=== PATIENT | female | born 1950 | race African-American/Black ===

== ENCOUNTER 2017-02-16 21:57 | Emergency (ER) | payer OTHER ==
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
--- NOTE | 2017-02-16 22:39 | CPEKG ---
Heart Rate: 58 RR Interval: 1034 P-R Interval: 140 QRSD Interval: 82 QT Interval: 456 QTC Interval: 448 P [place]: 1 QRS [place]: 41 T Wave [place]: 32 EKG Severity - NORMAL ECG - EKG Impression: SINUS RHYTHM Electronically Signed By: Reggie Andrea 16-Feb-2017 23:18:31
[2017-02-16] MEDS ORDERED: fentaNYL 100 MCG/2 ML INJ IVP ONE (22:53)
[2017-02-16] MEDS ORDERED: NS 1,000 ML IV ONE (23:09)
[2017-02-16 23:16] LABS: % IMMATURE GRANULYOCYTES 0.2 % (0.0-1.1); ABSOLUTE IMMATURE GRANULOCYTES 0.02 10^3/uL (0.00-0.10); ADD DIFF? NO; ADD MORPH? NO; ADD SCAN? NO; ATYPICAL LYMPHOCYTE FLAG 0 (0-99); FRAGMENT RBC FLAG 40 (0-99); HEMATOCRIT 33.8 % (38.0-47.0); HEMOGLOBIN 10.7 g/dL (12.6-16.3); LEFT SHIFT FLG 0 (0-99); LIPEMIA HEMOLYSIS FLAG 80 (0-99); MEAN CELL HEMOGLOBIN 24.3 pg (27.9-34.1); MEAN CELL HEMOGLOBIN CONCENTR. 31.7 g/dL (32.4-36.7); MEAN CELL VOLUME 76.6 fL (81.5-99.8); PLATELET CLUMPS FLAG 30 (0-99); PLATELET COUNT 245 10^3/uL (150-400); RED BLOOD CELL COUNT 4.41 10^6/uL (4.18-5.33); RED CELL DISTRIBUTION WIDTH 19.1 % (11.5-15.2)
[2017-02-16 23:23] LABS: INR 1.07 (0.83-1.16); PROTIME(PATIENT) 13.8 SEC (12.0-15.0)
[2017-02-16 23:28] LABS: ANION GAP 10 mEq/L (8-16); CALCIUM 10.2 mg/dL (8.5-10.4); CARBON DIOXIDE 26 mEq/l (22-31); CHLORIDE 103 mEq/L (97-110); CREATININE 0.7 mg/dL (0.6-1.0); GLOMERULAR FILTRATION RATE > 60; GLUCOSE 94 mg/dL (70-100); POTASSIUM 3.9 mEq/L (3.5-5.2); SODIUM 139 mEq/L (134-144)
[2017-02-16 23:39] LABS: TROPONIN I < 0.012 ng/mL (0.000-0.034)
[2017-02-16] MEDS ORDERED: IOPAMIDOL (ISOVUE-300) 100 ML BTL ONE (23:50)
[2017-02-17 00:26] LABS: COLOR PALE YELLOW; LEUKOCYTE ESTERASE,URINE NEGATIVE (NEGATIVE); NITRITE,URINE NEGATIVE (NEGATIVE)
[2017-02-17 00:33] LABS: RBC,URINE 15-25 /hpf (0-3)
[2017-02-17] MEDS ORDERED: IPRATROPIUM/ALBUTEROL 3 ML DEYVIAL IH ONE (00:45)
[2017-02-17 00:46] VITALS: BP 155/61; PULSE 66; RESP 11; TEMP 98.1; O2SAT 96
[2017-02-17] MEDS ORDERED: ALBUTEROL INH PREPACK MDI TAKEHOME ONE (01:15)
== END 2017-02-17 01:23 | disposition home or self-care (01) ==
DX: R06.00 Dyspnea, unspecified (principal); R09.89 Other specified symptoms and signs involving the circulatory and respiratory systems; R07.9 Chest pain, unspecified; I10 Essential (primary) hypertension; E86.9 Volume depletion, unspecified; Z79.82 Long term (current) use of aspirin; Z87.891 Personal history of nicotine dependence
CPT/HCPCS: 71010; 71275; 93005; 96361; 96374; 99285; J3010; Q9967

== ENCOUNTER → 2017-02-27 | Outpatient (CLI) | payer OTHER | LOC: FIMAGING 09:28 | PROVIDERS: ATTEND Internal Medicine | DX: R22.42 Localized swelling, mass and lump, left lower limb (principal); I50.9 Heart failure, unspecified ==

== ENCOUNTER 2017-03-07 00:25 | Observation (INO) | payer OTHER ==
--- NOTE | 2017-03-07 00:37 | EDPHY ---
H & P Stated Complaint: CP & HTN HPI/ROS: HPI CHIEF COMPLAINT: Left-sided chest pressure dull ache, hypertension HISTORY OF PRESENT ILLNESS: This patient very pleasant 66-year-old female she presents emergency room left-sided chest discomfort since 06/05 today. She states has been rather constant. It is described as a dull ache pressure sensation left side of her chest goes upper left neck and down her left arm. She denies any nausea vomiting or diaphoresis with this. She does endorse some shortness of breath with this. She is currently being evaluated for COPD. She has never had a stroke or heart attack. Does not smoke but had a remote history of smoking. Of note this patient just arrived to [facility] 3 weeks ago from [place]. She left [place] as [place] family lives here [place] Past Medical History: Hypertension Past Surgical History: No recent surgery Social History: Remote history of tobacco. Denies illicit drugs or alcohol. Relocated from [place] Family History: Noncontributory ROS REVIEW OF SYSTEMS: A comprehensive 10 point review of systems is otherwise negative aside from elements mentioned in the history of present illness. Exam Constitutional appears well nontoxic, triage nursing summary reviewed, vital signs reviewed, awake/alert. Eyes normal conjunctivae and sclera, EOMI, PERRLA. HENT normal inspection, atraumatic, moist mucus membranes, no epistaxis, neck supple/ no meningismus, no raccoon eyes. Respiratory clear to auscultation bilaterally, normal breath sounds, no respiratory distress, no wheezing. Cardiovascular rate normal, regular rhythm, no murmur, no edema, distal pulses normal. Gastrointestinal soft, non-tender, no rebound, no guarding, normal bowel sounds, no distension, no pulsatile mass. Genitourinary no CVA tenderness. Musculoskeletal no midline vertebral tenderness, full range of motion, no calf swelling, no tenderness of extremities, no meningismus, good pulses, neurovascularly intact. Skin pink, warm, & dry, no rash, skin atraumatic. Neurologic awake, alert and oriented x 3, AAOx3, moves all 4 extremities equally, motor intact, sensory intact, CN II-XII intact, normal cerebellar, normal vision, normal speech. Psychiatric normal mood/affect. Heme/Lymph/Immune no lymphadenopathy. Differential diagnosis includes but is not limited to: ACS, atypical chest pain , pneumothorax, pneumonia, pulmonary embolism, aortic dissection, congestive heart failure, tumor, musculoskeletal pain, esophageal pain, GERD, peptic ulcer disease, pancreatitis Medical Decision Making: Plan for this patient IV establishment with IV fluid bolus, nitroglycerin to see if this improves her chest discomfort and hypertension, full-dose aspirin, check EKG to rule out acute coronary syndrome, troponin. Blood work. Re-evaluate. Re-evaluation: ED x-ray chest one view: Negative for acute cardiopulmonary disease. EKG interpretation by me on record in [employer] system. Impression time of EKG 0046: This is sinus rhythm rate of 55. LVH present. I do not appreciate acute ischemic change. Patient's chest pain has greatly improved with 2 doses of nitroglycerin. Blood pressure improved as well. 0129: Patient D-dimer is noted to be positive. Will proceed with CT angiogram of the chest in the setting of rule out pulmonary embolism. In the setting of chest pain shortness of breath. 0133: Additionally will keep this patient in the hospital for further evaluation of her hypertension and chest pressure. Relieved by nitroglycerin. I do not have any indication here in the emergency room that she is having acute coronary syndrome. Plan for hospital admission. Hospitalist has accepted Dr. García. CT scan angiogram of the chest with IV contrast shows no pulmonary embolism. Unremarkable CT angiogram. Source: Patient - Personal History Current Tetanus/Diphtheria Vaccine: Unsure Current Tetanus Diphtheria and Acellular Pertussis (TDAP): Unsure - Medical/Surgical History Hx Asthma: No Hx Chronic Respiratory Disease: No Hx Diabetes: No Hx Cardiac Disease: No Hx Renal Disease: No Hx Cirrhosis: No Hx Alcoholism: No Hx HIV/AIDS: No Hx Splenectomy or Spleen Trauma: No Other PMH: htn - Social History Smoking Status: Former smoker Constitutional: Initial Vital Signs Temperature (C) 36.6 C 03/07/17 00:28 Heart Rate 60 03/07/17 00:28 Respiratory Rate 16 03/07/17 00:28 Blood Pressure 149/88 H 03/07/17 00:28 O2 Sat (%) 95 03/07/17 00:28 O2 Delivery Mode Room Air Allergies/Adverse Reactions: No Known Allergies Allergy (Unverified 02/16/17 22:00) Home Medications: Medication Instructions Recorded ALPRAZolam [Xanax 0.5 MG (*)] 0.5 mg PO HS PRN 03/07/17 Albuterol [Proventil Inhaler HFA 1 - 2 puffs IH DAILY PRN 03/07/17 (*)] Aspirin [Aspirin 81mg (*)] 81 mg PO DAILY 03/07/17 Bisoprol/Hydrochlorothiazide 1 each PO DAILY 03/07/17 [Bisoprolol-Hctz 5-6.25 mg Tab] Herbals/Supplements -Info Only 1 ea PO DAILY 03/07/17 amLODIPine BESYLATE [Norvasc 2.5 2.5 mg PO DAILY #30 tab 03/07/17 mg (*)] Medical Decision Making - Data Points Laboratory Results: Laboratory Results 03/07/17 00:43 03/07/17 00:43 Medications Given: Discontinued Medications Aspirin (Aspirin) 324 mg PO EDNOW ONE Stop: 03/07/17 00:43 Last Admin: 03/07/17 00:51 Dose: 324 mg Bisoprolol Fumarate/HCTZ (Ziac 5/6.25) 1 each PO DAILY AMBAR Stop: 09/03/17 13:59 Last Admin: 03/07/17 16:35 Dose: Not Given Enoxaparin Sodium (Lovenox) 40 mg SC DAILY AMBAR Stop: 09/03/17 08:59 Last Admin: 03/07/17 08:55 Dose: 40 mg Sodium Chloride (Ns) 1,000 mls @ 0 mls/hr IV EDNOW ONE; Wide Open PRN Reason: Protocol Stop: 03/07/17 00:43 Last Admin: 03/07/17 00:51 Dose: 1,000 mls Nitroglycerin (Nitrostat) 0.4 mg SL Q5M PRN PRN Reason: Chest Pain Last Admin: 03/07/17 01:08 Dose: 1 tab Departure - Departure Disposition: [facility] Clinical Impression: Chest pain Qualifiers: Chest pain type: unspecified Qualified Code(s): R07.9 - Chest pain, unspecified Hypertension Qualifiers: Hypertension type: essential hypertension Qualified Code(s): I10 - Essential ( primary) hypertension Condition: Fair
[2017-03-07] MEDS ORDERED: ASPIRIN 81 MG CHEWABLE TAB PO ONE (00:42)
[2017-03-07] MEDS ORDERED: NS 1,000 ML IV ONE (00:42)
--- NOTE | 2017-03-07 00:47 | CPEKG ---
Heart Rate: 55 RR Interval: 1091 P-R Interval: 160 QRSD Interval: 82 QT Interval: 440 QTC Interval: 421 P [place]: -8 QRS [place]: 27 T Wave [place]: -1 EKG Severity - ABNORMAL ECG - EKG Impression: SINUS RHYTHM EKG Impression: CONSIDER LEFT VENTRICULAR HYPERTROPHY Electronically Signed By: Sterling Kramer 07-Mar-2017 07:06:34
--- NOTE | 2017-03-07 00:47 | CPEKG ---
Heart Rate: 55 RR Interval: 1091 P-R Interval: 160 QRSD Interval: 82 QT Interval: 440 QTC Interval: 421 P [place]: -8 QRS [place]: 27 T Wave [place]: -1 EKG Severity - ABNORMAL ECG - EKG Impression: SINUS RHYTHM EKG Impression: CONSIDER LEFT VENTRICULAR HYPERTROPHY Electronically Signed By: Sterling Kramer 07-Mar-2017 07:06:34
[2017-03-07] MEDS: NITROGLYCERIN 0.4 MG BTL SL PRN ×2 (00:51→01:08)
[2017-03-07 00:52] LABS: PLATELET COUNT 236 10^3/uL (150-400)
[2017-03-07 01:05] LABS: CREATINE KINASE 72 IU/L (0-156)
[2017-03-07] MEDS ORDERED: IOPAMIDOL (ISOVUE 370) 100 ML BTL IV ONE (01:32)
[2017-03-07 01:33] LABS: INR 1.09 (0.83-1.16)
[2017-03-07] MEDS ORDERED: diphenhydrAMINE 25 MG CAP PO PRN (03:00)
[2017-03-07] MEDS ORDERED: ONDANSETRON 4 MG/2 ML VIAL IVP PRN (03:00)
[2017-03-07] MEDS ORDERED: LORazepam 0.5 MG TAB PO PRN (03:00)
[2017-03-07] MEDS ORDERED: ACETAMINOPHEN 325 MG TAB PO PRN (03:00)
[2017-03-07] MEDS ORDERED: HYDROCODONE/APAP 5/325 TAB PO PRN (03:00)
[2017-03-07 04:27] LABS: PLATELET COUNT 220 10^3/uL (150-400)
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
[2017-03-07] MEDS ORDERED: ENOXAPARIN 40 MG/0.4 ML SYR SC SCH (09:00)
[2017-03-07] MEDS ORDERED: REGADENOSON 0.4 MG/5 ML SYR IVP ONE (09:39)
--- NOTE | 2017-03-07 11:23 | CPR ---
[f rep st] NONINVASIVE CARDIAC PROCEDURE REPORT PROCEDURE: Lexiscan injection of Lexiscan myocardial perfusion imaging study. INDICATION FOR PROCEDURE: Episodes of chest pressure, unable to run on treadmill. Evaluation for ca rdiac ischemia. 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 After obtaining informed consent, ensuring patient's n.p.o. status of caffeine for greater than 12 hours, patient was placed on electrocardiogram. Initial EKG shows sinus rhythm, normal axis, nonspecific T-wave abnormalities in inferior leads. The patient denies any chest pain, shortness of breath, or symptoms suggesting of ischemia. Initial blood pressure 160/70, saturating 9 7% on room air. INJECTION: Patient was given Lexiscan slow IV push followed by nuclear isotope. Within 1 minute of injection, patient reported some mild shortness of breath and stomach cramping. Her heart rate incre ased, but her electrocardiogram remained unchanged. No arrhythmias noted. Her blood pressure within 2 minutes of injection was 150/70, saturation 100% on room air. Patient was given a caffeinated marlena erage, and within 5 minutes of injection all symptoms subsided. Blood pressure back up to 156/80 wit hin 5 minutes, saturation 100%, again no electrocardiogram changes noted. IMPRESSION: A 66-year-old female, unable to walk on treadmill. Reporting episodes of chest pain, be ing evaluated for cardiac ischemia. No significant EKG changes noted with Lexiscan injection. Patie nt did report some mild shortness of breath, and abdominal cramping with injection which subsided wit h caffeinated beverage. Within 5 minutes all symptoms subsided, vital signs are stable. Enedelia macario finish poststress imaging in Nuclear Medicine at this time. /[id number]/MODL
[2017-03-07 12:22] VITALS: RESP 20
[2017-03-07] MEDS ORDERED: ALPRAZolam 0.5 MG TAB PO PRN (13:57)
[2017-03-07] MEDS ORDERED: ALBUTEROL 60 PUFFS/8 GM MDI IH PRN (13:57)
[2017-03-07] MEDS ORDERED: BISOPROLOL PO SCH (14:00)
[2017-03-07] MEDS ORDERED: HCTZ PO SCH (14:00)
[2017-03-07] MEDS ORDERED: ALBUTEROL 200 PUFFS/18 GM MDI IH PRN (14:09)
--- NOTE | 2017-03-07 14:26 | ASMTCMCOM ---
CM Note CM Note Notes: 03/07/2017 Case Management Note Reviewed chart, spoke w/RN. No case management d/c needs identified d/t strong family support, age and previous activity levels prior to admission. No therapy evals ordered. Case Management d/c poc: Home with family support with follow up as directed. Date Signed: 03/07/2017 02:26 PM Electronically Signed By:Crys Bowden RN
--- NOTE | 2017-03-07 15:04 | GDS ---
[f rep st] DISCHARGE SUMMARY DIAGNOSES: 1. Chest pain, noncardiac. 2. Hypertension. 3. Anxiety. 4. Dyspnea. 5. Anemia. HOSPITAL COURSE: A 66-year-old female, admitted with left-sided chest pain as well as dyspnea. She had seen outpatient providers for this, however presented to the ED and was thus admitted. CT angiog mg was negative for a PE. Lexiscan showed no evidence of ischemia or infarct; it showed an EF of 75 % with no wall motion abnormalities. Her blood pressure has fluctuated here. Recommend that she follow up with her primary care physician for her anemia. She has been told her h emoglobin has been low in the past. This may be contributing to her dyspnea. This is microcytic. Recommend that she follow up with Dr. Ruiz for pulmonology. She has an appointment at the end of . She should receive sleep apnea screening, as well as evaluation for underlying COPD. I prescribed her amlodipine 2.5 mg daily for her hypertension. This will be in addition to her bisop rolol and hydrochlorothiazide that she was previously prescribed. She should follow up with her [facility] physician for ongoing blood pressure management. DISPOSITION: She is discharged home in stable condition. /[id number]/MODL
--- NOTE | 2017-03-07 15:04 | GDS ---
[f rep st] DISCHARGE SUMMARY DIAGNOSES: 1. Chest pain, noncardiac. 2. Hypertension. 3. Anxiety. 4. Dyspnea. 5. Anemia. HOSPITAL COURSE: A 66-year-old female, admitted with left-sided chest pain as well as dyspnea. She had seen outpatient providers for this, however presented to the ED and was thus admitted. CT angiog mg was negative for a PE. Lexiscan showed no evidence of ischemia or infarct; it showed an EF of 75 % with no wall motion abnormalities. Her blood pressure has fluctuated here. Recommend that she follow up with her primary care physician for her anemia. She has been told her h emoglobin has been low in the past. This may be contributing to her dyspnea. This is microcytic. Recommend that she follow up with Dr. Ruiz for pulmonology. She has an appointment at the end of . She should receive sleep apnea screening, as well as evaluation for underlying COPD. I prescribed her amlodipine 2.5 mg daily for her hypertension. This will be in addition to her bisop rolol and hydrochlorothiazide that she was previously prescribed. She should follow up with her [facility] physician for ongoing blood pressure management. DISPOSITION: She is discharged home in stable condition. /[id number]/MODL
[2017-03-07] MEDS ORDERED: HYDROCHLOROTHIAZIDE 25 MG TAB PO SCH (16:30)
[2017-03-07] MEDS ORDERED: BISOPROLOL FUMARATE 5 MG TAB PO SCH (16:30)
[2017-03-07 17:01] VITALS: BP 124/65; PULSE 65; TEMP 98; O2SAT 93
[2017-03-08] MEDS ORDERED: ASPIRIN 81 MG CHEWABLE TAB PO SCH (09:00)
== END 2017-03-07 16:34 | disposition home or self-care (01) ==
LOC: INTOOBSV 01:33 → F2W 02:36
PROVIDERS: ADMIT Family Medicine; ATTEND Family Medicine
DX: R07.9 Chest pain, unspecified (principal); I10 Essential (primary) hypertension; F41.9 Anxiety disorder, unspecified; R06.00 Dyspnea, unspecified; D64.9 Anemia, unspecified; Z87.891 Personal history of nicotine dependence
CPT/HCPCS: 71010; 71275; 78452; 93005; 93017; 96360; 99285; A9500; G0378; J1650; J2785; Q9967

== ENCOUNTER → 2017-03-26 | Outpatient (CLI) | payer OTHER | LOC: FCPNEURO 20:00 | PROVIDERS: ATTEND Student in an Organized Health Care Education/Training Program | DX: G47.33 Obstructive sleep apnea (adult) (pediatric) (principal) ==

== ENCOUNTER 2017-04-11 12:28 | Day surgery (SDC) | payer OTHER ==
[2017-04-11] MEDS ORDERED: LIDOCAINE 1% 2 ML INJ ID PRN (13:04)
[2017-04-11] MEDS ORDERED: LR 1,000 ML IV ONE (13:04)
--- NOTE | 2017-04-11 14:15 | PDANEPAE ---
ANE History of Present Illness anemia s/f EGD/colonsocopy ANE Past Medical History - Cardiovascular History Hx Hypertension: Yes Hx Arrhythmias: No Hx Chest Pain: No Hx Coronary Artery / Peripheral Vascular Disease: No Hx CHF / Valvular Disease: No Hx Palpitations: No - Pulmonary History Hx COPD: Yes Hx Asthma/Reactive Airway Disease: No Hx Oxygen in Use at Home: No Hx Sleep Apnea: No Sleep Apnea Screening Result - Last Documented: Positive Pulmonary History Comment: Sleep study for SONIDO 03-27-17-no results yet. uses Albuterol PRN "emphysema" - Neurologic History Hx Cerebrovascular Accident: No Hx Seizures: No Hx Dementia: No Neurologic History Comment: "a few H/A's" - Endocrine History Hx Diabetes: No - Renal History Hx Renal Disorders: No - Liver History Hx Hepatic Disorders: No - Neurological & Psychiatric Hx Hx Neurological and Psychiatric Disorders: Yes Neurological / Psychiatric History Comment: "crooked on spine" - Cancer History Hx Cancer: No - Congenital Disorder History Hx Congenital Disorders: No - GI History Hx Gastrointestinal Disorders: Yes Gastrointestinal History Comment: iron deficiency anemia - Other Health History Other Health History: L leg /L groin pain "for awhile"- checked by in [place]. L arm pain "spasms" - Chronic Pain History Chronic Pain: No - Surgical History Prior Surgeries: C Section-1990 ANE Review of Systems Review of Systems: - Exercise capacity METS (RN): 4 METS ANE Patient History - Allergies Allergies/Adverse Reactions: No Known Allergies Allergy (Verified 03/28/17 10:07) - Home Medications Home medications: home medication list seen and reviewed Home Medications: ALPRAZolam [Xanax 0.5 MG (*)] 0.5 mg PO HS PRN 03/07/17 [Last Taken 03/06/17] Albuterol [Proventil Inhaler HFA (*)] 1 - 2 puffs IH DAILY PRN 03/07/17 [Last Taken Unknown] Aspirin [Aspirin 81mg (*)] 81 mg PO DAILY 03/07/17 [Last Taken 03/06/17 325mg] Bisoprol/Hydrochlorothiazide [Bisoprolol-Hctz 5-6.25 mg Tab] 1 each PO DAILY 05/23 [Last Taken 03/06/17] - NPO status NPO Status: no food or drink >8 hours NPO Since - Liquids (Date): 04/11/17 NPO Since - Liquids (Time): 11:00 NPO Since - Solids (Date): 04/10/17 NPO Since - Solids (Time): 11:00 - Anes Hx Anes Hx: no prior problems - Smoking Hx Smoking Status: Former smoker - Alcohol Use Alcohol Use: Rarely ANE Labs/Vital Signs - Vital Signs Blood Pressure: 161/72 Heart Rate: 63 Respiratory Rate: 18 O2 Sat (%): 98 Height: 162.56 cm Weight: 63.503 kg ANE Physical Exam - Airway Neck exam: FROM Mallampati Score: Class 2 Mouth exam: normal dental/mouth exam - Pulmonary Pulmonary: no respiratory distress - Cardiovascular Cardiovascular: regular rate and rhythym - ASA Status ASA Status: II ANE Anesthesia Plan Anesthesia Plan: GA with mask
[2017-04-11] MEDS ORDERED: PROPOFOL/EMULSION 500 MG/50 ML BOTTLE IV ONE (14:25)
[2017-04-11] MEDS ORDERED: fentaNYL 100 MCG/2 ML INJ ONE (14:25)
[2017-04-11] MEDS ORDERED: DEXAMETHASONE 4 MG/ML VIAL ONE (14:35)
[2017-04-11] MEDS ORDERED: ONDANSETRON 4 MG/2 ML VIAL ONE (14:35)
--- NOTE | 2017-04-11 14:50 | POSTOPPROG ---
Post Op Note Date of Operation: 04/11/17 Surgeon: Al Morse Anesthesia: IV Sedation Pre-op Diagnosis: Iron deficiency anemia Post-op Diagnosis: same Indication: same Procedure: EGD/CLN Findings: normal Inf/Abcess present in the surg proc area at time of surgery?: No
--- NOTE | 2017-04-11 14:56 | GIREPORT ---
[facility] Surgical Services - Endoscopy Department Patient Name: Marialuisa Dalton Procedure Date: 04/11/2017 2:10 PM Patient Type: Outpatient Attending MD/ ER Physician: Al Morse MD Procedure: Upper GI endoscopy Indications: Unexplained iron deficiency anemia Providers: Al Morse MD Medicines: General Anesthesia Complications: No immediate complications. Description of Procedure: After obtaining informed consent, the endoscope was passed under direct vision. Throughout the procedure, the patient's blood pressure, pulse, and oxygen saturations were monitored continuously. The Endoscope was intro duced through the mouth, and advanced to the third part of duodenum. The uppe r GI endoscopy was accomplished with ease. The patient tolerated the procedu re well. Findings: The esophagus was normal. The stomach was normal. Fluid aspiration for acidity showed a pH of 2. The examined duodenum was normal. Biopsies were taken with a cold forceps in the gastric antrum for Helicobacter pylori testing using CLOtest. Estimated Blood Loss: Estimated blood loss: none. Estimated blood loss: none. Post Op Diagnosis: - Normal esophagus. - Normal stomach. - Normal examined duodenum. - No specimens collected. Recommendation: - Await pathology results. Attending Participation: I personally performed the entire procedure. Al Morse MD Al Morse MD 04/11/2017 2:55:49 PM This report has been signed electronicallyRobert MD Lito Number of Addenda: 0 Note Initiated On: 04/11/2017 2:10 PM [email or web address]
--- NOTE | 2017-04-11 14:57 | GIREPORT ---
[facility] Surgical Services - Endoscopy Department Patient Name: Marialuisa Dalton Procedure Date: 04/11/2017 2:38 PM Patient Type: Outpatient Attending / ER Physician: Al Morse MD Procedure: Colonoscopy Indications: Unexplained iron deficiency anemia Providers: Al Morse MD Medicines: General Anesthesia Complications: No immediate complications. Description of Procedure: After obtaining informed consent, the scope was passed under direct vis ion. Throughout the procedure, the patient's blood pressure, pulse, and oxyg en saturations were monitored continuously. The was introduced through the anus and advanced to the cecum, identified by appendiceal orifice and ileoce desiree valve. The colonoscopy was performed with ease. The patient tolerated t he procedure well. The quality of the bowel preparation was excellent. Findings: The entire examined colon appeared normal on direct and retroflexion vi ews. Estimated Blood Loss: Estimated blood loss: none. Post Op Diagnosis: - The entire examined colon is normal on direct and retroflexion views. - No specimens collected. Recommendation: - Discharge patient to home. - Resume previous diet. - Continue present medications. - Repeat colonoscopy in 10 years for surveillance. Attending Participation: I personally performed the entire procedure. Al Morse MD Al Morse MD 04/11/2017 2:57:29 PM This report has been signed electronicallyRobert MD Lito Number of Addenda: 0 Note Initiated On: 04/11/2017 2:38 PM Total Procedure Duration Time 0 hours 7 minutes 27 seconds [email or web address]
[2017-04-11 15:17] VITALS: TEMP 97.5
[2017-04-11 15:41] VITALS: O2SAT 97
[2017-04-11 15:44] VITALS: BP 159/89; PULSE 56; RESP 14
== END 2017-04-11 16:14 | disposition home or self-care (01) ==
LOC: FSGY 12:28
PROVIDERS: ATTEND Internal Medicine Gastroenterology
PROC: 0DJD8ZZ Inspection of Lower Intestinal Tract, Via Natural or Artificial Opening Endoscopic (ICD-10-PCS; principal; 2017-04-11 14:30)
PROC: 0DB68ZX Excision of Stomach, Via Natural or Artificial Opening Endoscopic, Diagnostic (ICD-10-PCS; principal; 2017-04-11 14:30)
DX: D50.9 Iron deficiency anemia, unspecified (principal); I10 Essential (primary) hypertension
CPT/HCPCS: J1100; J2405; J2704; J3010

== ENCOUNTER → 2017-05-03 | Outpatient (CLI) | payer OTHER | LOC: BMCIMAGING 12:07 | PROVIDERS: ATTEND Orthopaedic Surgery Hand Surgery | DX: M25.512 Pain in left shoulder (principal); M19.012 Primary osteoarthritis, left shoulder ==